=== PATIENT | male | born 1940 | race Caucasian/White ===

== ENCOUNTER 2017-10-14 15:53 | Emergency (ER) | payer OTHER ==
[2017-10-14 19:01] LABS: ADD UMIC YES; UR ASCORBIC ACID 40 mg/dL (NEGATIVE); UR BILIRUBIN (Dip) NEGATIVE (NEGATIVE); UR BLOOD (Dip) 2+ mg/dL (NEGATIVE); UR CLARITY CLOUDY (CLEAR); UR COLOR YELLOW (YELLOW); UR GLUCOSE (Dip) NEGATIVE (NEGATIVE); UR KETONES (Dip) TRACE mg/dL (NEGATIVE); UR LEUKOCYTE ESTERASE (Dip) 2+ Leu/ul (NEGATIVE); UR MUCUS FEW /HPF (NONE SEEN); UR NITRITE (Dip) NEGATIVE (NEGATIVE); UR RBC 50 /HPF (0-5); UR SPECIFIC GRAVITY (Dip) 1.021 (1.003-1.030); UR TOTAL PROTEIN (Dip) 2+ mg/dl (NEGATIVE); UR UROBILINOGEN (Dip) 1+ mg/dL (NEGATIVE); UR WBC > 182 /HPF (0-5)
[2017-10-14] MEDS: LIDOCAINE 1% (MDV) 10 ML INJ INFIL (19:24)
[2017-10-14] MEDS: CEFTRIAXONE 1 GM INJ IM (19:25)
[2017-10-14] MEDS ORDERED: CEFTRIAXONE 1 GM/50 ML (PMX) 50 ML IVPB (19:30)
[2017-10-14 22:17] LABS: ADD MAN DIFF? NO
[2017-10-14 22:20] LABS: BASOPHILS % 0.2 % (0.0-2.0); EOSINOPHILS # 0.2 10^3/ul (0.0-0.5); EOSINOPHILS % 1.6 % (0.0-7.0); HEMATOCRIT 40.3 % (42.0-52.0); HEMOGLOBIN 13.3 g/dl (14.0-18.0); LYMPHOCYTES # 2.1 10^3/ul (0.8-2.9); LYMPHOCYTES % 21.7 % (15.0-51.0); MEAN CORPUSCULAR HEMOGLOBIN 30.7 pg (29.0-33.0); MEAN CORPUSCULAR VOLUME 93.1 fl (82.0-101.0); MEAN PLATELET VOLUME 9.4 fl (7.4-10.4); MONOCYTES % 10.5 % (0.0-11.0); NEUTROPHIL # 6.2 10^3/ul (1.6-7.5); NEUTROPHILS % 65.6 % (39.0-77.0); PLATELET COUNT 285 10^3/UL (140-415); RED BLOOD COUNT 4.33 10^6/ul (4.70-6.10); RED CELL DISTRIBUTION WIDTH 12.8 % (11.5-14.5)
[2017-10-14 22:20] LABS: WHITE BLOOD COUNT 9.5 10^3/ul (4.8-10.8)
[2017-10-14 22:50] LABS: ALANINE AMINOTRANSFERASE 32 IU/L (13-69); ALKALINE PHOSPHATASE 77 IU/L (42-121); ANION GAP 12 (8-16); ASPARTATE AMINO TRANSFERASE 22 IU/L (15-46); BILIRUBIN,INDIRECT 0.4 mg/dl (0-1.1); BILIRUBIN,TOTAL 0.4 mg/dl (0.2-1.3); BLOOD UREA NITROGEN 12 mg/dl (7-20); CALCIUM 9.1 mg/dl (8.4-10.2); CARBON DIOXIDE 27 mmol/L (21-31); CHLORIDE 104 mmol/L (97-110); CREATININE 0.85 mg/dl (0.61-1.24); GLUCOSE 109 mg/dl (70-220); POTASSIUM 3.7 mmol/L (3.5-5.1); SODIUM 139 mmol/L (135-144)
== END 2017-10-15 00:43 | disposition short-term general hospital (02) ==
LOC: E/R 10-15 00:43 → FTE 15:53
DX: N45.1 Epididymitis (principal); L04.9 Acute lymphadenitis, unspecified; C79.89 Secondary malignant neoplasm of other specified sites; Z85.51 Personal history of malignant neoplasm of bladder
CPT/HCPCS: 36415; 74176; 76870; 80053; 81001; 85025; 87086; 96372; 99285-25

== ENCOUNTER 2017-11-01 08:58 | Day surgery (SDC) | payer OTHER ==
[~2017-11-01 08:58] MED LIST: DEXAMETHASONE 4 MG/ML 1 ML INJ; ONDANSETRON 4 MG INJ; ROCURONIUM 50 MG INJ
[2017-11-01] MEDS ORDERED: OXYCODONE/ACETAMINOPHEN (5/325) TAB PO ×2 (12:30)
[2017-11-01] MEDS ORDERED: METOCLOPRAMIDE 10 MG INJ IV (12:30)
[2017-11-01] MEDS ORDERED: HYDROmorphONE 1 MG/5 ML IV SYRINGE IV ×3 (12:30)
[2017-11-01] MEDS ORDERED: EPHEDrine SULFATE 50 MG/5 ML SYG IV (12:30)
[2017-11-01] MEDS ORDERED: ALBUTEROL 0.083% (NEB) 2.5 MG/3 ML AMP HHN (12:30)
[2017-11-01] MEDS ORDERED: ONDANSETRON 4 MG INJ IV (12:30)
[2017-11-01] MEDS ORDERED: FENTAnyl 50 MCG/ML VIAL IV ×2 (12:30)
[2017-11-01] MEDS ORDERED: MIDAZOLAM 1 MG/ML 2 ML INJ IV (12:30)
[2017-11-01] MEDS ORDERED: LABETALOL HCL 20MG INJ IV (12:30)
[2017-11-01] MEDS ORDERED: KETOROLAC 30 MG INJ IV (12:30)
[2017-11-01] MEDS ORDERED: DIPHENHYDRAMINE 50 MG INJ IV (12:30)
[2017-11-01] MEDS ORDERED: MEPERIDINE 25 MG INJ IV (12:30)
[2017-11-01] MEDS ORDERED: hydrALAzine 20 MG INJ IV (12:30)
[2017-11-01] MEDS ORDERED: CIPROFLOXACIN 400MG/D5W 200 ML (12:34)
[2017-11-01] MEDS ORDERED: ROCURONIUM 50 MG INJ (12:44)
[2017-11-01] MEDS ORDERED: PROPOFOL 20 ML (12:44)
[2017-11-01] MEDS ORDERED: SUGAMMADEX SODIUM 200 MG/2 ML VIAL IV (13:52)
[2017-11-01] MEDS ORDERED: LIDOCAINE 2% (SDV) 5 ML INJ (13:52)
[2017-11-01] MEDS: FENTAnyl 50 MCG/ML VIAL IV (14:17)
== END 2017-11-01 15:48 | disposition home or self-care (01) ==
LOC: SDS 08:58
DX: C67.9 Malignant neoplasm of bladder, unspecified (principal)
CPT/HCPCS: 52240; 88305